=== PATIENT | female | born 1950 | race Caucasian/White ===

== ENCOUNTER → 2019-05-15 | Outpatient (CLI) | payer MEDICARE, OTHER | LOC: MC.RAD 13:00 | DX: Z12.31 Encounter for screening mammogram for malignant neoplasm of breast (principal) ==

== ENCOUNTER → 2020-05-17 | Outpatient (CLI) | payer MEDICARE, OTHER | LOC: MC.RAD 10:32 | DX: Z12.31 Encounter for screening mammogram for malignant neoplasm of breast (principal) ==

== ENCOUNTER 2020-11-12 06:25 | Day surgery (SDC) | payer MEDICARE, OTHER ==
[2020-11-12] VITALS (278 sets, daily range): BP systolic 117–172; BP diastolic 60–90; PULSE 65–691; TEMP 98.1–98.5; O2SAT 91–99
[~2020-11-12] VITALS: Ht 162.6 cm; Wt 86.9 kg
[2020-11-12 07:36] LABS: HEMATOCRIT 40.9 % (37.0-47.0); HEMOGLOBIN 13.5 g/dl (12.5-16.0); MEAN CELL VOLUME 93 fl (80.0-100.0); MEAN CORPUSCULAR HEMOGLOBIN 31 pg (27.0-31.0); MEAN CORPUSCULAR HGB CONC 33 g/dl (33.0-37.0); MEAN PLATELET VOLUME 9.9 fl (7.4-10.4); PLATELET COUNT 340 K/mm3 (130-400); RED BLOOD COUNT 4.38 M/mm3 (4.10-5.30); REDCELL DISTRIBUTION WIDTH-CV 12.3 % (11.5-14.5)
[2020-11-12 07:46] LABS: CREATININE, serum 0.57 (0.52-1.25); POTASSIUM 3.5 mmol/L (3.4-5.0)
[2020-11-12 07:51] LABS: INR 1.1 (0.8-3.0); PROTHROMBIN TIME 11.8 SECONDS (9.7-12.8)
[2020-11-12 07:53] LABS: PARTIAL THROMBOPLASTIN TIME 27.5 SECONDS (26.0-37.0)
[2020-11-12] MEDS ORDERED: MOBIC15 MG PO (07:56)
[2020-11-12] MEDS ORDERED: HCTZ 25MG TAB25 MG PO (07:56)
[2020-11-12] MEDS ORDERED: CALCIUM 600MG+D1 TAB PO (07:57)
[2020-11-12] MEDS ORDERED: ASPIRIN E.C. 8181 MG PO (07:57)
[2020-11-12] MEDS ORDERED: NITROSTAT0.4 MG/TAB SL (07:58)
--- NOTE | 2020-11-12 12:05 | NUR ---
WHEN PATIENT WAS TAKEN TO EXPRESS UNIT, AWAITING ICU BED PLACEMENT, ANGIOMAX INFUSION WAS DC'D PER VERBAL ORDER FROM DR ORDONEZ.
--- NOTE | 2020-11-12 13:00 | NUR ---
Beth, [employer] Operator RN called to assess pt's rt forearm. Small lump palpable to rt forearm with defined lateral border. Pt denies any pain or discomfort to area, and no bruising or change in color noted. Pt's left forearm has similar palpable lump. It is decided that this is anatomical finding. No is size or characteristics of area with removal of additional air from TR band. Pt asked to notify staff with any change in area, including onset of pain, edema or bleeding. Will continue to monitor and slowly release air from TR band.
--- NOTE | 2020-11-12 14:15 | NUR ---
Pt taken ICU rm 1 by wheelchair. Personal belongings sent with pt. Pt has steady gait up to toilet in room. Air was removed from TR band in 2ml increments without issue. No bleeding from right radial puncture site. Area of concern to rt forearm has not changed, no enlargement noted and pt continues to deny pain at site. R radial puncture site dressed with 2x2 gauze and bandaid. IV remains patent. Pt has tolerated PO without issue. Report was given to ANDREAS Moreno who will take over cares of pt at this time.
--- NOTE | 2020-11-12 14:31 | NUR ---
PT here from express unit at 1420. PT is ambulatory with steady gait. PT is alert and oriented. PT moved to bed and hooked up to ICU monitor. PT has zero complaints at this time. Pt vitals WNL. No bleeding, oozing, or bruising noted at catheter insertion site.
--- NOTE | 2020-11-12 20:33 | NUR ---
PATIENT ACTIVE IN ROOM OUT OF BED, DENIES DISCOMFORT, RIGHT RADIAL PUNCTURE SITE REDNESS NO SWELLING OR PAIN BANDAID APPLIED
[2020-11-14 12:11] LABS: CALCIUM 8.7 mg/dL (8.4-10.2); CREATININE, serum 0.47 (0.52-1.25); POTASSIUM 3.5 mmol/L (3.4-5.0)
[2020-11-14 15:02] LABS: BASO % 0.1 % (0.0-2.0); EOS # 0.2 (0.0-0.7); EOS % 2.1 % (0-4.0); GRAN # 5.4 (1.4-6.5); GRAN % 67.2 % (42.2-75.2); HEMATOCRIT 40.8 % (37.0-47.0); HEMOGLOBIN 13.1 g/dl (12.5-16.0); LYMPH # 1.8 (1.2-3.4); LYMPH % 22.6 % (20.0-51.0); MEAN CELL VOLUME 94 fl (80.0-100.0); MEAN CORPUSCULAR HEMOGLOBIN 30 pg (27.0-31.0); MEAN CORPUSCULAR HGB CONC 32 g/dl (33.0-37.0); MEAN PLATELET VOLUME 9.9 fl (7.4-10.4); MONO # 0.6 (0.1-0.6); MONO % 7.6 % (1.7-9.3); PLATELET COUNT 321 K/mm3 (130-400); RED BLOOD COUNT 4.36 M/mm3 (4.10-5.30); REDCELL DISTRIBUTION WIDTH-CV 12.3 % (11.5-14.5)
== END 2020-11-13 10:06 | disposition home or self-care (01) ==
LOC: COL.CAR 06:25 → ICU 13:56 → COL.CAR 11-13 10:06
PROVIDERS: Internal Medicine Cardiovascular Disease
DX: I25.10 Atherosclerotic heart disease of native coronary artery without angina pectoris (principal); I10 Essential (primary) hypertension; E78.5 Hyperlipidemia, unspecified; Z86.718 Personal history of other venous thrombosis and embolism; Z20.822 Contact with and (suspected) exposure to COVID-19
CPT/HCPCS: OP; C1769; C1874; C1887; C9600; J0583; J1644; J2250; J3010